=== PATIENT | male | born 1945 | race Caucasian/White ===

== ENCOUNTER 2017-02-10 11:00 | Emergency (ER) | payer OTHER ==
[2017-02-10 11:10] VITALS: BP 152/94; TEMP 96.7; BMI 29.4
--- NOTE | 2017-02-10 11:26 | ED.PDOC ---
General ED Provider: Dr. DENNIS ROSA Chief Complaint: Chest Pain Stated Complaint: Sharp left chest pains with movement of chest x 2 days. No dyspnea, nausea, vomiting, SOB, weakness, or radiation of pain. Time Seen by Physician: 11:15 Mode of Arrival: Walk-In Information Source: Patient Primary Care Provider: RAMSES STEPHENS Nursing and Triage Documentation Reviewed and Agree: Yes Musculoskeletal Complaint Exam - Back Pain Complaint/Exam Mechanism of Injury: Reports: No known trauma Onset/Duration: 2 days Symptoms Are: Still present Timing: Intermittent Episodes Lasting: Seconds Initial Severity: Moderate Current Severity: Moderate Location: Reports: Diffuse (left chest) Character: Reports: Sharp (when turns chest to left or right triggers sharp pain ), Aching, Throbbing TAD Risk Factors: Reports: Hypertension AAA Risk Factors: Reports: None Cauda Equina Risk Factors: Reports: None Epidural Abcess Risk Factors: Reports: None Related Surgical History: Reports: None Focal Tenderness: No Paraspinal Muscle Tenderness: No Paraspinal Muscle Spasm: No Scoliosis: No Lordosis: No Kyphosis: No SLR Test: Right Negative, Left Negative Hip Motion Testing Pain: Right Negative, Left Negative Focal Weakness: Present: None Focal Sensory Loss: Present: None Gait: Present: Normal Differential Diagnoses: Other (left chest wall muscle strain, left paravertebral muscle strain, cardiac etiology) Review of Systems - Review Of Systems Constitutional: Reports: No symptoms Respiratory: Reports: No symptoms Cardiac: Reports: Chest pain (left anterior chest pain only when turn to left or right. No pain at rest. No radiation. No other symptoms.) GI: Reports: No symptoms : Reports: No symptoms Musculoskeletal: Reports: No symptoms Skin: Reports: No symptoms Neurological: Reports: No symptoms All Other Systems: Reviewed and Negative Past Medical History - Past Medical History Previously Healthy: Yes Endocrine: Reports: None Cardiovascular: Reports: Hypertension Respiratory: Reports: None Hematological: Reports: None Gastrointestinal: Reports: GERD, Liver (very fatty liver) Genitourinary: Reports: None Neuro/Psych: Reports: None Musculoskeletal: Reports: None Cancer: Reports: None - Surgical History General Surgical History: Reports: Cholecystectomy, Other (colon resection for diverticlulitis, total prostatetectomy, liver biopsy) - Family History Family History: Reports: Unknown - Social History Smoking Status: Former smoker Hx Substance Use: No Alcohol Screening: None Lives: With family - Immunizations Tetanus Shot up to Date: No Influenza Vaccine within 12 Months: No Pneumococcal Vaccine up to Date: No Physical Exam - Physical Exam Appearance: Well-appearing, No pain distress, Well-nourished Ill-appearing: None Pain Distress: None Eyes: ANNY, EOMI, Conjunctiva clear ENT: Ears normal, Nose normal, Oropharynx normal Neck: Supple Respiratory: Airway patent, Breath sounds clear (lungs clear with deep breath or cough), Breath sounds equal, Respirations nonlabored Cardiovascular: RRR, Pulses normal, No rub, No murmur GI/: Soft, Nontender, No masses, Bowel sounds normal, No Organomegaly Musculoskeletal: Normal strength (no chest wall tenderness of thoracic paraspinal tenderness), ROM intact, No edema, No calf tenderness Skin: Warm, Dry, Normal color Neurological: Sensation intact, Motor intact, Reflexes intact, Cranial nerves intact, Alert, Oriented Psychiatric: Affect appropriate, Mood appropriate Interpretation - Radiology Interpretation Radiology Interpretation By: ED Physician Radiology Results: No acute changes Exam Interpreted: CXR - EKG Interpretation Time of EKG #1: 11:37 Rate: Bryson (HR 59) Rhythm: Sinus Ectopy: None Tappan: NL ST Segment: Normal Interpretation: Sinus bradycardia, otherwise normal Critical Care Note - Critical Care Note Total Time (mins): 0 Course - Course Hematology/Chemistry: 02/10/17 11:50 02/10/17 11:50 Orders, Labs, Meds: Lab Review 02/10/17 02/10/17 02/10/17 11:50 11:50 11:50 WBC 4.82 RBC 5.45 Hgb 17.0 Hct 47.7 MCV 87.5 MCH 31.2 H MCHC 35.6 H RDW Coeff of Keagan 12.5 Plt Count 131 L Immature Gran % (Auto) 0.4 Neut % (Auto) 60.6 Lymph % (Auto) 29.0 Lee % (Auto) 7.7 Eos % (Auto) 1.7 Baso % (Auto) 0.6 Immature Gran # (Auto) 0.0 Neut # 2.9 Lymph # 1.4 Lee # 0.4 Eos # 0.1 Baso # 0.0 Sodium 139 Potassium 4.4 Chloride 107 Carbon Dioxide 22 L Anion Gap 14.4 BUN 14 Creatinine 1.04 Estimated GFR (MDRD) 70.00 BUN/Creatinine Ratio 13.46 Glucose 95 Lactic Acid 13.1 Calcium 8.9 Total Bilirubin 1.97 H AST 27 ALT 58 Alkaline Phosphatase 62 Total Creatine Kinase 70 Troponin I < 0.0100 Total Protein 6.9 Albumin 4.1 Globulin 2.8 Albumin/Globulin Ratio 1.46 Urine Color Urine Clarity Urine pH Ur Specific [place] Urine Protein Urine Glucose (UA) Urine Ketones Urine Blood Urine Nitrite Urine Bilirubin Urine Urobilinogen Ur Leukocyte Esterase 02/10/17 11:50 WBC RBC Hgb Hct MCV MCH MCHC RDW Coeff of Keagan Plt Count Immature Gran % (Auto) Neut % (Auto) Lymph % (Auto) Lee % (Auto) Eos % (Auto) Baso % (Auto) Immature Gran # (Auto) Neut # Lymph # Lee # Eos # Baso # Sodium Potassium Chloride Carbon Dioxide Anion Gap BUN Creatinine Estimated GFR (MDRD) BUN/Creatinine Ratio Glucose Lactic Acid Calcium Total Bilirubin AST ALT Alkaline Phosphatase Total Creatine Kinase Troponin I Total Protein Albumin Globulin Albumin/Globulin Ratio Urine Color Yellow Urine Clarity Clear Urine pH 6.5 Ur Specific [place] 1.010 Urine Protein Negative Urine Glucose (UA) Negative Urine Ketones Negative Urine Blood Negative Urine Nitrite Negative Urine Bilirubin Negative Urine Urobilinogen 0.2 Ur Leukocyte Esterase Negative Orders Category Date Time Status EKG-(ED ONLY) Stat CARDIO 02/10/17 11:31 Ordered CBC W/ AUTO DIFF Stat LAB 02/10/17 11:50 Completed CK [CREATINE KINASE] Stat LAB 02/10/17 11:50 Completed COMPREHENSIVE METABOLIC PANEL Stat LAB 02/10/17 11:50 Completed LACTIC ACID Stat LAB 02/10/17 11:50 Completed TROPONIN I Stat LAB 02/10/17 11:50 Completed URINALYSIS C & S IF INDICATED Stat LAB 02/10/17 11:50 Completed CHEST, 2 VIEWS PA & LAT Stat RADS 02/10/17 11:32 Taken Vital Signs: Temp Pulse Resp BP Pulse Ox 02/10/17 11:00 96.7 F L 60 20 152/94 H 96 Departure - Departure Time of Disposition: 12:43 Disposition: HOME SELF-CARE Discharge Problem: Chest pain, non-cardiac Instructions: Noncardiac Chest Pain (ED) Condition: Good Pt referred to PMD for follow-up: No (see PCP if no better in 3 days) Allergies/Adverse Reactions: Allergies No Known Allergies Allergy (Unverified 02/10/17 11:11) Home Medications: Ambulatory Orders Acetaminophen with Codeine [Tylenol #3 Tab] 1 tab PO Q4H PRN #20 tablet Lisinopril [Zestril] 20 mg PO DAILY 02/10/17 Metoprolol Succinate 50 mg PO DAILY 02/10/17 Sucralfate [Carafate] 1 tab PO DAILY 02/10/17 Disposition Discussed With: Patient
[2017-02-10 11:53] LABS: BASOPHILS % (AUTO) 0.6 % (0.0-3.0); EOSINOPHILS # (AUTO) 0.1 K/ul (0.0-0.7); EOSINOPHILS % (AUTO) 1.7 % (0.0-7.0); HEMATOCRIT 47.7 % (42.0-52.0); IMMATURE GRANULOCYTE % (AUTO) 0.4 % (0.0-5.0); LYMPHOCYTES # (AUTO) 1.4 K/uL (0.60-3.4); MEAN CORPUSCULAR HEMOGLOBIN 31.2 pg (27.0-31.0); MEAN CORPUSCULAR HGB CONC 35.6 (31.8-35.4); MEAN CORPUSCULAR VOLUME 87.5 fl (80.0-94.0); MONOCYTES # (AUTO) 0.4 K/uL (0.4-2.0); MONOCYTES % (AUTO) 7.7 (0-10); NEUTROPHILS # (AUTO) 2.9 K/ul (2.0-6.9); NEUTROPHILS % (AUTO) 60.6; PLATELET COUNT 131 10^3/uL (140-440); RED BLOOD COUNT 5.45 10^6/ul (4.70-6.10); WHITE BLOOD COUNT 4.82 K/ul (4.2-10.2)
[2017-02-10 12:09] LABS: BILIRUBIN,URINE Negative (NEGATIVE); KETONES,URINE Negative (NEGATIVE); LEUKOCYTE ESTERASE ,URINE Negative (NEGATIVE); NITRITE,URINE Negative (NEGATIVE); PH,URINE 6.5 (5-9); PROTEIN,URINE Negative (NEGATIVE); URINE, BLOOD Negative (NEGATIVE)
[2017-02-10 12:10] LABS: ADD URINE MICROSCOPIC NO
[2017-02-10 12:22] LABS: ALANINE AMINOTRANSFERASE 58 U/L (12-78); ALBUMIN 4.1 g/dL (3.4-5.0); ALBUMIN/GLOBULIN RATIO 1.46; ALKALINE PHOSPHATASE 62 U/L (56-119); ANION GAP 14.4; ASPARTATE AMINO TRANSFERASE 27 U/L (15-37); BILIRUBIN,TOTAL 1.97 mg/dL (0.00-1.20); BLOOD UREA NITROGEN 14 mg/dL (7-18); BUN/CREATININE RATIO 13.46; CALCIUM 8.9 mg/dL (8.2-10.2); CARBON DIOXIDE 22 mmol/L (23-31); CHLORIDE 107 mmol/L (98-107); CREATINE KINASE 70 U/L; CREATININE 1.04 mg/dL (0.60-1.10); GLUCOSE 95 mg/dL (82-115); POTASSIUM 4.4 mmol/L (3.5-5.1); SODIUM 139 mmol/L (136-145); TOTAL PROTEIN 6.9 g/dL (5.8-8.1)
--- NOTE | 2017-02-10 19:54 | DI ---
EXAM: Chest two views CLINICAL INDICATION: Chest pain. COMPARISON: 05/15/2007. FINDINGS: PA and lateral views of the thorax are provided. There is a 1.0 cm right-sided opacity which is only really appreciated on the AP radiograph and could be superimposition, but a pulmonary nodule cannot be entirely excluded. The remainder of the pulmon harley parenchyma is clear and there is no pleural abnormality. The cardiomediastinal silhouette and vi sualized bony structures are unchanged. IMPRESSION: 1. Unexpected finding 1.0 cm right-sided possible pulmonary parenchymal nodule. Suggest CT of the t horax for further characterization. 2. Otherwise negative chest x-ray.
== END 2017-02-10 12:47 | disposition home or self-care (01) ==
LOC: ED 11:00
DX: R07.89 Other chest pain (principal); I10 Essential (primary) hypertension
CPT/HCPCS: 36415; 80053; 81001; 82550; 83605; 84484; 85025; 93005; 93010; 99283

== ENCOUNTER 2017-05-08 16:46 | Outpatient (CLI) | payer OTHER ==
[2017-05-08 16:59] LABS: FLU INTERNAL QC INTERNAL QC VALID; MOLECULAR FLU A POSITIVE BY NAAT (NEGATIVE); MOLECULAR FLU B NEGATIVE BY NAAT (NEGATIVE)
== END 2017-05-08 16:47 | disposition home or self-care (01) ==
LOC: LAB 16:46
PROVIDERS: ATTEND Nurse Practitioner Family
DX: R05 Cough (principal)
CPT/HCPCS: 87502

== ENCOUNTER 2017-06-15 13:30 | Outpatient (CLI) | END 2017-06-15 13:31 | disposition home or self-care (01) | LOC: LAB 13:30 | PROVIDERS: ATTEND Emergency Medicine | DX: I10 Essential (primary) hypertension (principal) | CPT/HCPCS: 36415; 80053; 84443 ==

== ENCOUNTER 2017-06-21 15:01 | Outpatient (CLI) | END 2017-06-21 15:02 | disposition home or self-care (01) | LOC: LAB 15:01 | PROVIDERS: ATTEND Emergency Medicine | DX: I10 Essential (primary) hypertension (principal) | CPT/HCPCS: 36415; 83037 ==

== ENCOUNTER 2017-11-19 09:39 | Outpatient (CLI) | END 2017-11-19 09:40 | disposition home or self-care (01) | LOC: RHC-LAB 09:39 | PROVIDERS: ATTEND Emergency Medicine | DX: E11.9 Type 2 diabetes mellitus without complications (principal); Z12.5 Encounter for screening for malignant neoplasm of prostate | CPT/HCPCS: 36415; 80053; 80061; 83036; 84443; 85025 ==

== ENCOUNTER 2017-11-30 07:49 | Outpatient (CLI) ==
--- NOTE | 2017-11-30 08:24 | US ---
EXAM: Ultrasound abdomen limited. HISTORY: Elevated liver enzymes. COMPARISON: 05/17/2007. TECHNIQUE: Abdominal, real time with image documentation: limited (eg, single organ, quadrant, foll ow-up) FINDINGS: The liver demonstrates increased parenchymal echogenicity without intrahepatic biliary dil atation. Portal venous flow is normal in direction. The gallbladder is without shadowing stones, wa ll thickening or pericholecystic fluid. Common duct measures approximately 0.5 cm. Visualized porti ons of the pancreas are unremarkable. IMPRESSION: Fatty infiltration of the liver.
== END 2017-11-30 07:50 | disposition home or self-care (01) ==
LOC: RAD 07:49
PROVIDERS: ATTEND Emergency Medicine
DX: R74.8 Abnormal levels of other serum enzymes (principal)